=== PATIENT | female | born 1955 | race Caucasian/White ===

== ENCOUNTER 2017-06-26 15:46 | Inpatient (IN) | payer MEDICARE, BC ==
[~2017-06-26] VITALS: Ht 170.2 cm; Wt 80.9 kg
--- NOTE | ~2017-06-26 | HEMODYNAMI ---
PATIENT:ANTHONY LUTZ MEDICAL RECORD: [id number] : 55 LOCATION:[facility] D.2105 [facility]# [id number] ADMISSION DATE: 06/26/17 Generatedon:07/08/201714:49 Patient name: ANTHONY LUTZ Patient #: [id number] SSN: [id number] : 1955 Date of study: 07/08/2017 Page: Of Hemodynamic Procedure Report Patient Data Patient Demographics Procedure consent was obtained First Name: ANTHONY Gender: Female Last Name: NELDA : 1955 [facility] Initial: LUANN Age: 62 year(s) Patient #: [id number] Race: SSN: [id number] Additional ID: [id number] Contact details [address]: [address] [place] [address] State: [place] City: [place] Zip code: [address] Past Medical History Allergies Allergen Reaction Date Comments Reported Other allergy 07/08/2017 Simvastatins Admission Admission Data Admission Date: 06/26/2017 Admission Time: 16:28 Room #: D.2105 Lab Results Lab Result Date: 07/08/2017 Lab Result Time: 0:00 Biochemistry Name Units Result Min Max BUN mg/dl 22 --(----)-* 7 18 Creatinine mg/dl 1.7 --(----)-* 0.6 1.3 CBC Name Units Result Min Max Hemoglobin g/dl 11.4 *-(----)-- 13.5 17.5 Procedure Procedure Types Cath Procedure Diagnostic Procedure [facility] w/Coronaries Sedation Charges Moderate Sedation up to 30 minutes PCI Procedure Coronary Stent Coronary Stent Initial Procedure Description Procedure Date Procedure Date: 07/08/2017 Procedure Start Time: 13:52 Procedure End Time: 14:31 Procedure Staff Name Function Juventino Chamberlain MD Performing Physician Yomaira Tamayo RT Monitor Rochelle Cruz RT Scrub Yamileth Harvey RN Nurse Procedure Data Cath Procedure Fluoroscopy Diagnostic fluoroscopy Total fluoroscopy Time: 7.9 time: 7.9 min min Diagnostic fluoroscopy Total fluoroscopy dose: dose: 2067 mGy 2067 mGy Contrast Material Contrast Material Type Amount (ml) Isovue 300 112 Entry Location Entry Primary Successful Side Size Upsize Upsize Entry Closure [place] ccessful Closure Location (Fr) 1 (Fr) 2 (Fr) Remarks Device Remarks Radial Right 6 Fr Mechanical artery Short Compression Estimated blood loss: 10 ml Diagnostic catheters Device Type Used For End Catheter Placement DIAGNOSTIC Williams 110cm 5 Procedure Fr catheter ([id number]) DIAGNOSTIC JL 3.5 5Fr Procedure catheter ([id number]) Procedure Complications No complications Procedure Medications Medication Administration Route Dosage Oxygen NC 2 l/min Lidocaine 2% added to field 20 Heparin Flush Bag added to field 2 bags (1000units/500ml NS) 0.9% NaCl I.V. 100 ml/hr Versed I.V. 1 mg Fentanyl I.V. 50 mcg Versed I.V. 1 mg Fentanyl I.V. 50 mcg Radial Cocktail added to field 1 syringe (Verapomil 2mg/Nitro 400mcg/Heparin 1500units) Heparin Bolus I.V. 5000 units Integrilin (Bolus I.V. 11.3 ml 2mg/ml) Epinephrine I.V. 0.5 mg Dobutamine I.V. drip 5 mcg/kg/min (500mg/250ml D5W) Plavix P.O. 600 mg Hemodynamics Rest HGB: 11.4 (g/dl) Heart Rate: 88 (bpm) Pressure Samples Time Site Value (mmHg) Purpose Heart Use Rate(bpm) 14:01 LV 79/25,20 Snapshot 89 14:01 LV 81/25,20 Snapshot 129 14:01 AO (67) Pullback 45 Gradients Valve Time Site Site Mean SEP/DFP Peak To Heart Use 1 2 (mmHg) (sec/min) Peak Rate (mmHg) (bpm) Aortic 14:01 LV AO 17 11 45 (67) Calculations Valve P-P Mean Valve Index Valve Source Name Gradient Area Flow (cm2) Aortic 17 17 Snapshots Pre Cath Intra NCS Post Cath Vital Signs Time Heart Resp SPO2 etCO2 NIBP (mmHg) Rhythm Pain Sedation Rate (ipm) (%) (mmHg) Status Level (bpm) 13:39:42 88 23 99 47.9 139/93(133) NSR 0 (11) 10(A) , No pain 13:44:27 88 30 98 44.9 158/75(128) NSR 0 (11) 10(A) , No pain 13:55:20 91 19 94 9.7 117/76(89) NSR 0 (11) 10(A) , No pain 13:59:42 89 21 93 22.4 111/67(81) NSR 0 (11) 10(A) , No pain 14:04:11 89 15 93 18.7 105/60(82) NSR 0 (11) 10(A) , No pain 14:09:55 90 16 92 24.7 107/74(92) NSR 0 (11) 10(A) , No pain 14:14:27 91 18 93 11.2 118/72(91) NSR 0 (11) 10(A) , No pain 14:19:16 90 13 93 36.7 124/63(77) NSR 0 (11) 10(A) , No pain 14:23:42 89 15 93 24.7 92/77(88) NSR 0 (11) 10(A) , No pain 14:30:28 98 18 94 21.7 113/70(82) NSR 0 (11) 10(A) , No pain 14:38:03 98 16 94 26.2 Time NSR 0 (11) 10(A) Exceeded , No pain 14:41:48 98 14 93 30.7 103/72(84) NSR 0 (11) 10(A) , No pain Medications Time Medication Route Dose Verified Delivered Reason N otes Effectiveness by by 13:37:40 Oxygen NC 2 l/min Juventino Carson used for St Jah Harvey RN procedure 13:37:49 Lidocaine 2% added 20ml vial Juventino Jauregui for local to [facility] anesthetic field MD WALTON 13:37:56 Heparin Flush added 2 bags Juventino Jauregui used for Bag to [facility] procedure (1000units/500ml field MD WALTON NS) 13:38:04 0.9% NaCl I.V. 100 ml/hr Juventino Carson Per physician St Jah Harvey RN, MD 13:51:21 Versed I.V. 1 mg Juventino Carson for sedation St Jah Harvey RN, MD 13:51:27 Fentanyl I.V. 50 mcg Juventino Carson for sedation St Jah Harvey RN, MD 13:57:50 Versed I.V. 1 mg Juventino Carson for sedation St Jah Harvey RN, MD 13:57:59 Fentanyl I.V. 50 mcg Juventino Carson for sedation St Jah Harvey RN, MD 13:58:12 Radial Cocktail added 1 syringe Juventino sheets (Verapomil to St Jah Huerta John vasodilation 2mg/Nitro field MD WALTON 400mcg/Heparin 1500units) 14:11:00 Heparin Bolus I.V. 5000 units Juventino sheets v erified St Jah Harvey RN anticoagulation with dr MD russell 14:14:03 Integrilin I.V. 11.3 ml Juventino sheets (Bolus 2mg/ml) St Jah Harvey RN antiplatelet therapy 14:24:35 Epinephrine I.V. 0.5 mg Juventino Carson Per physician St Jah Harvey RN, MD 14:30:44 Dobutamine I.V. 5 Juventino Carson Per physician (500mg/250ml drip mcg/kg/min St Jah Harvey RN D5W) 14:49:07 Plavix P.O. 600 mg Juventino Carson for [facility] Jah Harvey RN antiplatelet therapy Procedure Log Time Note 12:45:51 Informed consent obtained and on chart 12:47:57 Rochelle Cruz RT(R) sent for patient. Start room use. 12:47:58 Time tracking: Regular hours (M-F 7:00 - 5:00) 12:48:03 Plan of Care:Hemodynamics will remain stable., Cardiac rhythm will remain stable., Comfort level will be maintained., Respiratory function will remain adequate., Patient/ family verbilizes understanding of procedure., Procedure tolerated without complication., Recovers from procedure without complications.. 12:55:59 Diagnostic Cath Status : Elective 12:57:40 Lab Result : Hemoglobin 11.4 g/dl 12:57:40 Lab Result : Creatinine 1.7 mg/dl 12:57:40 Lab Result : BUN 22 mg/dl 13:37:40 Oxygen 2 l/min NC was administered by Yamileth Harvey RN; used for procedure; 13:37:49 Lidocaine 2% 20ml vial added to field was administered by Juventino Chamberlain MD; for local anesthetic; 13:37:56 Heparin Flush Bag (1000units/500ml NS) 2 bags added to field was administered by Juventino Chamberlain MD; used for procedure; 13:38:04 0.9% NaCl 100 ml/hr I.V. was administered by Yamileth Harvey RN; Per physician; 13:38:11 Vital chart was started 13:38:29 Patient received from Med II to CCL 2 Alert and oriented. Tansferred to table in Supine position. 13:38:31 Warm blankets applied, and jeff hugger turned on for patient comfort. 13:38:31 Correct patient and procedure confirmed by team. 13:38:33 ECG and BP/O2 sat monitors applied to patient. 13:38:34 Baseline sample Acquired. 13:38:42 Rhythm: sinus rhythm 13:38:44 Full Disclosure recording started 13:38:57 H&P Date Dictated: 07/07/2017 Within 30 days and on chart.. 13:38:59 Pre-procedure instructions explained to patient. 13:39:02 Family in waiting room. 13:39:52 Patient allergic to Other allergySimvastatins 13:39:56 Is the patient allergic to Iodine/contrast media? No. 13:39:58 Was the patient premedicated? Yes 13:39:59 Is patient on blood thinner?No 13:40:00 Patient diabetic? Yes. 13:40:01 If diabetic: On Metformin? Yes 13:40:04 If on Metformin: Last Dose? 07/07/2017 13:40:09 Previous problem with sedation/anesthesia? No ? 13:40:12 Snore? Yes 13:40:14 Sleep apnea? Yes 13:40:21 Patient pain scale 0/10 ?. 13:40:31 IV patent on arrival in right forearm with 0.9% NaCl at KVO. 13:40:39 Lab results completed and on chart. 13:40:50 Right Radial & Right Groin area was prepped with chlora-prep and draped in sterile fashion 13:40:51 Alarms reviewed by R. N. 13:40:52 Sharps counted by scrub and verified by R.N. 13:40:53 Physician paged 13:48:59 Physician arrived 13:49:00 --------ALL STOP TIME OUT------ 13:49:00 Final Timeout: patient, procedure, and site verified with staff and physician. All members of the team are in agreement. 13:49:03 Right Radial & Right Groin site verified by team. 13:49:08 Physical assessment completed. ASA score P 2 - A patient with mild systemic disease as per Juventino Chamberlain MD. 13:49:12 Sedation plan: IV Moderate Sedation Medication:Versed, Fentanyl 13:51:21 Versed 1 mg I.V. was administered by Yamileth Harvey RN; for sedation; 13:51:27 Fentanyl 50 mcg I.V. was administered by Yamileth Harvey RN; for sedation; 13:52:45 Use device set Femoral Dx 13:52:48 Procedure started. 13:52:53 Local anesthetic to right radial artery with Lidocaine 2% by Juventino Chamberlain MD.INITIAL ACCESS ONLY 13:53:05 ACIST Syringe (96188) opened to sterile field. 13:53:06 Bag Decanter (2002S) opened to sterile field. 13:53:08 Medline Cath Pack ([id number]) opened to sterile field. 13:53:08 DIAGNOSTIC WIRE .035 260cm J wire (503196) opened to sterile field. 13:53:10 ACIST Hand Control (87168) opened to sterile field. 13:53:11 ACIST Manifold (78471) opened to sterile field. 13:53:12 Tegaderm 4 x 4 (1626W) opened to sterile field. 13:55:05 A 6 Fr Short sheath was inserted into the Right Radial artery 13:55:08 SHEATH 6Fr Prelude Radial ([id number]) opened to sterile field. 13:57:50 Versed 1 mg I.V. was administered by Yamileth Harvey RN; for sedation; 13:57:59 Fentanyl 50 mcg I.V. was administered by Yamileth Harvey RN; for sedation; 13:58:12 Radial Cocktail (Verapomil 2mg/Nitro 400mcg/Heparin 1500units) 1 syringe added to field was administered by Juventino Chamberlain MD; for vasodilation; 14:00:14 A DIAGNOSTIC Williams 110cm 5 Fr catheter ([id number]) was advanced over the wire and used for Procedure. 14:00:19 LV gram done using KUMAR 14:01:36 EF : 25 % 14:02:11 RCA angiography performed. 14:03:47 Catheter removed. 14:04:48 A DIAGNOSTIC JL 3.5 5Fr catheter ([id number]) was advanced over the wire and used for Procedure. 14:06:36 Catheter removed. 14:06:48 GUIDE 5FR EBU 3.5 catheter ([id number]) opened to sterile field. 14:06:53 LCA angiography performed. 14:10:14 WHISPER 300cm guide wire ([id number]) opened to sterile field. 14:10:15 INFLATOR Merit BasixCompak (BB1484) opened to sterile field. 14:10:38 Catheter removed. 14:10:42 Proceeding to intervention. 14:11:00 Heparin Bolus 5000 units I.V. was administered by Yamileth Harvey RN; for anticoagulation; verified with dr russell 14:11:39 6 Fr EBU 3.5 guide catheter was inserted over the wire 14:11:44 whisper wire advanced. 14:12:25 Wire removed. 14:12:36 COUGAR 300cm guide wire ([id number]) opened to sterile field. 14:14:00 cougar wire advanced. 14:14:03 Integrilin (Bolus 2mg/ml) 11.3 ml I.V. was administered by Yamileth Harvey RN; for antiplatelet therapy; 14:14:04 Wire advanced across lesion. 14:16:59 Place stent Inflation Number: 1 A IDRIS OTW 3.0 x 18 stent ([id number]) was prepped and advanced across the Mid LAD. The stent was deployed at 14 SELENE for 0:24 (min:sec). 14:17:29 Stent catheter was removed intact over wire. 14:20:29 Place stent Inflation Number: 1 A IDRIS OTW 3.0 x 15 stent ([id number]) was prepped and advanced across the Prox LAD. The stent was deployed at 14 SELENE for 0:16 (min:sec). 14:22:46 Stent catheter was removed intact over wire. 14:24:27 Wire removed. 14:24:28 Guide catheter removed. 14:24:35 Epinephrine 0.5 mg I.V. was administered by Yamileth Harvey RN; Per physician; 14:25:02 Sheath removed intact; hemostasis achieved with Mechanical Compression to the Right Radial artery. 14:25:04 Procedure ended.(Physican Out) 14:27:45 Fluoroscopy time 07.90 minutes. 14::51 Fluoroscopy dose: 7 mGy 14:27:51 Flurop Dose total: 2066 14:27:54 Contrast amount:Isovue 300 112ml. 14:27:56 Sharps counted by scrub and verified by R.N. 14:27:59 TR band inflated with 10cc of air. 14:28:58 TR BAND Standard ([id number]) opened to sterile field. 14:29:03 Insertion/operative site no bleeding no hematoma. 14:29:06 Post Procedure Pulses reassessed and unchanged 14:29:23 Post-procedure physical assessment completed. ASA score P 3 - A patient with severe systemic disease as per Yomaira Tamayo RT(R). 14:30:05 Estimated blood loss: 10 ml 14:30:06 Post procedure instruction explained to patient.Patient verbalizes understanding. 14:30:40 Procedure type changed to Cath procedure, Diagnostic procedure, LHC, LHC w/Coronaries, Sedation Charges, Moderate Sedation up to 30 minutes, PCI procedure, Coronary Stent, Coronary Stent Initial 14:30:43 Procedure and supply charges have been captured, reviewed, submitted and are correct. 14:30:44 Dobutamine (500mg/250ml D5W) 5 mcg/kg/min I.V. drip was administered by Yamileth Harvey RN; Per physician; 14:31:11 Procedure Complication : No complications 14:31:14 Vital chart was stopped 14:31:15 See physician's report for complete and final results. 14:31:24 Report given to [facility]. 14:31:31 Patient transfered to [facility] with Bed. 14:31:34 Procedure ended. 14:31:34 Full Disclosure recording stopped 14:31:37 End room use (Document Last) 14:31:47 ACC-PCI Only Patient was given prescriptions, or instructed by Yamileth Harvey RN to start/continue the following medications upon discharge: Plavix 14:49:07 Plavix 600 mg P.O. was administered by Yamileth Harvey RN; for antiplatelet therapy; Intervention Summary Intervention Notes Time ActionType Lesion and Equipment Action# Pressure Duration Attributes Used 14:16:59 Place stent Mid LAD IDRIS OTW 3.0 1 14 00:24 x 18 stent ([id number]) 14:20:29 Place stent Prox LAD IDRIS OTW 3.0 1 14 00:16 x 15 stent ([id number]) Device Usage Item Name Manufacture Quantity Catalog Number Hospital Part Current Minimal Lot# / Charge Number Stock Stock Serial# Code ACIST Syringe Acist 1 23897 161052 732173 [id number] 20 (32542) [employer] Inc Bag Decanter Microtek 1 290812 77734 018429 5 () Medical Inc. Medline Cath Cardinal 1 [id number] 790046 14544 472467 5 Pack Health ([id number]) DIAGNOSTIC WIRE St Juan F 1 079052 966831 560701 088712 30 .035 260cm J wire (472349) ACIST Hand Acist 1 78977 544262 520492 077209 5 Control (37236) Medical Systems Inc ACIST Manifold Acist 1 35645 986443 661110 185492 5 (76097) Medical Systems Inc Tegaderm 4 x 4 3M 1 1626W 549962 695109 886747 5 (1626W) SHEATH 6Fr Merit 1 [id number] 704310 928268 913547 5 Prelude Radial Medical ([id number]) DIAGNOSTIC Terumo 1 405013 573833 972477 173300 5 Williams 110cm 5 Fr catheter (042326) DIAGNOSTIC JL Cardinal 1 [id number] 154825 296001 024729 5 3.5 5Fr Health catheter (906769N) GUIDE 5FR EBU Medtronic 1 [id number] 029234 026526 597989 1 3.5 catheter ([id number]) WHISPER 300cm Carolina 1 [id number] 602185 323123 036617 5 guide wire Vascular ([id number]) INFLATOR Merit Merit 1 [id number] 608761 273341 118668 15 BasixCommtk Medical (HK3767) COUGAR 300cm Carolina 1 [id number] 521635 545479 055036 1 guide wire Vascular ([id number]) IDRIS OTW 3.0 x Medtronic 1 [id number] 937287 4123001 560841 5 [id number] 18 stent ([id number]) IDRIS OTW 3.0 x Medtronic 1 [id number] 829261 752347 287627 5 [id number] 15 stent ([id number]) TR BAND Terumo 1 [id number] 366518 127117 435011 40 Standard ([id number]) Signature Audit [place] Stage Time Signature Unsigned Intra-Procedure 07/08/2017 Yomaira Tamayo 2:49:51 PM RT(R) Signatures Monitor : Yomaira Tamayo Signature : RT Date : Time : [address] [address]
--- NOTE | ~2017-06-26 | OP ---
PATIENT NAME: ANTHONY LUTZ MEDICAL RECORD: [id number] :55 LOCATION:D.M2 D.2105 ADMISSION DATE:06/26/17 SURGEON: MAKAYLA HINDS MD DATE OF OPERATION: 07/01/2017 PREOPERATIVE DIAGNOSES: 1. End-stage renal disease without access for hemodialysis. 2. Respiratory insufficiency. POSTOPERATIVE DIAGNOSES: 1. End-stage renal disease without access for hemodialysis. 2. Respiratory insufficiency. PROCEDURES: 1. Placement of right 19-cm HemoSplit catheter under fluoroscopic guidance (tunneled cuffed dual-lumen hemodialysis catheter). 2. Immediate surgeon interpretation of the fluoroscopic images. SURGEON: Makayla Hinds MD MONITOR TECH: None. BLOOD LOSS: 5 cc. ANESTHESIA: Local with IV sedation. COMPLICATIONS: None. The risks, possible complication, alternatives to procedure were explained to the patient and her family. They elected to proceed. The discussion specifically included, but was not limited to, bleeding requiring an emergency reoperation, infection, great vessel injury, and pneumothorax. The patient is quite ill. This procedure had to be performed under local with sedation as the patient is at a very high risk for ventilatory failure requiring prolonged mechanical ventilation if she requires endotracheal intubation. OPERATIVE COURSE: The patient was conveyed to the operating room urgently on 07/01/2017. IV sedation was induced by the anesthesia staff. The right neck and right chest were sterilely prepped and draped. A local anesthetic was used to infiltrate the skin and subcutaneous tissues of the right superior and infraclavicular chest as well as the right neck. Under ultrasonographic guidance, I percutaneously accessed the right internal jugular vein in an antegrade fashion. A guidewire passed easily. A small skin maribel was accomplished. A vessel dilator was used to dilate the subcutaneous tract. This was visualized under fluoroscopy. No radiologist was present for this procedure. Fluoroscopic images were obtained and are kept in the PACS system. The surgeon interpretation of the radiographic images is dictated within the body of this operative note. I then tunneled a 19-cm HemoSplit catheter from an incision in the right infraclavicular chest to the neck incision. I then advanced a dilator sheath over the wire. The dilator and wire were removed. Through the sheath, the tips of the HemoSplit catheter were advanced. The peel-away sheath was then peeled away. I then tugged on the HemoSplit catheter seating the cuff in the OPERATIVE REPORT [id number] ANTHONY LUTZ subcutaneous tissues. Under fluoroscopy, the longest tip of the HemoSplit catheter appeared to be either in the right innominate vein or in the superior vena cava. Another image was obtained over the right lung apex. There was no evidence of pneumothorax. No evidence of kinking or twisting of the HemoSplit catheter. The neck incision was closed with a horizontal mattress 3-0 Vicryl. The flange of the HemoSplit catheter was sutured down lung scan with 2-0 nylons. Both lumens flushed easily and aspirated dark, nonpulsatile blood. I then flushed both lumens of the HemoSplit catheter with the appropriate amount of concentrated heparin. Sterile dressings were applied. TRANSINT:[id number] Voice Confirmation ID: [id number] DOCUMENT ID: [id number] MAKAYLA HINDS MD at 1507 CC: ARLENE BRADEN MD [id number] DICTATION DATE: 07/02/17 1039 RADIAL DRILL OPERATOR FOR PLASTIC: 07/02/17 1347 ADM IN [facility] [address] [place] [address]
--- NOTE | ~2017-06-26 | EC ---
PATIENT:ANTHONY LUTZ DATE OF SERVICE: 06/26/17 SEX: F MEDICAL RECORD: [id number] DATE OF : 55 LOCATION:D.M2 D.210 AGE OF PATIENT: 62 ADMISSION DATE: 06/26/17 REFERRING PHYSICIAN: INTERPRETING PHYSICIAN: SANG JIMENEZ MD ECHOCARDIOGRAM REPORT ECHO CHARGES 4 ECHO COMPLETE Date: 06/27 CLINICAL DIAGNOSIS: SOB/CHEST PAIN ECHOCARDIOGRAPHIC MEASUREMENTS (adult normal given) AC root (d.<3.7cm) 2.7 cm LV Septum d (<1.2 cm> 1.2 cm Valve Excursion 1.6 cm LV Septum (systole) 1.6 cm Left Atria (s.<4.0cm> 4.1 cm LVPW d(<1.2cm) 1.5 cm RV (d.<2.3cm) 4.1 cm LVPW (sytole) 1.9 cm LV diastole(<5.6CM) 5.6 cm MV E-F(>70mm/sec) cm LV systole 3.5 cm LVOT Diameter 1.7 cm MV exc.(>10mm) cm Est.ejection fraction (50-75%) % DOPPLER: LVIT cm/sec A 54.0 cm/sec E 82.0 cm/sec LA cm/sec RVSP 37 mmHg LVOT 113 cm/sec AOP1/2T m/s Asc. Ao 148 cm/sec RVOT 92 cm/sec RA cm/sec PA 153 cm/sec AV Gradient Peak 8.79 mmHg AV Mean 4.91 mmHg AV Area 1.6 cm MV Gradient Peak 6.36 mmHg MV Mean 2.60 mmHg MV Area cm COMMENTS: Tobacco Stemmer: Lori LANDERS Field Sales Trainer: 1 Dr. Jimenez TAPE# PACS Pericardial Effusion N DATE OF SERVICE: 06/27/2017 ECHOCARDIOGRAM FINDINGS: 1. Left ventricular chamber size is within normal limits. Left ventricular systolic function is normal. Overall ejection fraction estimated at 55%. 2. Left atrium is enlarged at 4.1 cm. Right atrium and right ventricular chamber sizes are as well mildly dilated. 3. Valvular structures have normal structure and motion. ECHOCARDIOGRAM REPORT [id number] ANTHONY LUTZ 4. Doppler interrogation reveals mild mitral regurgitation, mild tricuspid regurgitation, no other valvular insufficiency or stenosis and pulmonary systolic pressure is estimated 37 mmHg. 5. No evidence of pericardial effusion or left ventricular thrombus. TRANSINT:[id number] Voice Confirmation ID: [id number] DOCUMENT ID: [id number] SANG JIMENEZ MD at 1848 CC: [id number] DICTATION DATE: 06/27/17 1305 TEACHER'S AIDE: 06/27/17 1650 ADM IN [facility] [address] [place] [id number]
--- NOTE | ~2017-06-26 | OP ---
PATIENT NAME: ANTHONY LUTZ MEDICAL RECORD: [id number] :55 LOCATION:D.M2 D.2105 ADMISSION DATE:06/26/17 SURGEON: LYNSEY DACOSTA MD DATE OF OPERATION: 07/08/2017 PROCEDURE: Left heart catheterization, selective coronary angiography, right radial approach. CATHETERS: Radial sheath, Hoffman catheter. The procedure was well tolerated and the patient was returned to the rodriguez, sheath removed. TR band was placed. FINDINGS: Left ventriculography in 30-degree KUMAR shows global LV hypokinesis, reduced EF, estimated EF 20% to 25%. CORONARY ANATOMY: LEFT MAIN: Left main free of disease. LAD: LAD has 2 diffuse sequential stenosis of 90% consistent with diabetic disease. CIRCUMFLEX: Small circumflex totally occluded, fills via left to left collaterals. RIGHT CORONARY ARTERY: Dominant artery, totally occluded, fills again via left to right collaterals. IMPRESSION: Only functioning vessel at this point is the LAD. PLAN: Intervention momentarily. DESCRIPTION OF PROCEDURE: Using indwelling sheath, an EBU 3.5 guiding catheter provided good guide catheter support followed by a 300 cm wire was placed across both lesions to the LAD down this portion of vessel. Distal stenosis of 90% was addressed with a 3.0 x 18 mm Omsan drug-eluting stent, more proximally 3.0 x 15 mm Provo drug-eluting stent was placed both up to 14 atmospheres for 45 seconds. Final angiography shows excellent resolution to 90% stenosis, no significant residual. BRANDEN flow was 2 throughout the procedure. Given decreased pump function, the patient was placed on Dobutrex for inotropic support for the short term. MOVED TO CORRECT ACCT#, ROSE 07/18/17 TRANSINT:[id number] Voice Confirmation ID: [id number] DOCUMENT ID: [id number] LYNSEY DACOSTA MD at 0826 CC: [id number] DICTATION DATE: 07/08/17 1433 POST TENSIONING IRONWORKER HELPER: 07/08/17 1538 DIS IN 07/10/17 [facility] [address] [place] [address]
[2017-06-26] MEDS ORDERED: HYDROCODONE-APA1 TAB PO (16:31)
[2017-06-26] MEDS ORDERED: ALDACTONE50 MG PO (16:33)
[2017-06-26] MEDS ORDERED: NEURONTIN 300300 MG PO (16:33)
[2017-06-26] MEDS ORDERED: MOBIC7.5 MG PO (16:34)
[2017-06-26] MEDS ORDERED: LISINOPRIL10 MG PO (16:34)
[2017-06-26] MEDS ORDERED: REMERON15 MG PO (16:35)
[2017-06-26] MEDS ORDERED: GLUCOPHAGE500 MG PO (16:36)
[2017-06-26] MEDS ORDERED: FUROSEMIDE20 MG PO (16:36)
[2017-06-26] MEDS ORDERED: LIPITOR20 MG PO (16:37)
[2017-06-26] MEDS ORDERED: REQUIP0.5 MG PO (16:38)
[2017-06-26] MEDS ORDERED: HUMALOG 30100 UNITS/ SC (16:55)
[2017-06-26] MEDS ORDERED: LEVEMIR100 U/M1 SC (16:56)
[2017-06-26 18:42] LABS: HEMATOCRIT 43.5 % (36.0-48.0); HEMOGLOBIN 13.3 g/dL (12-16); MCHC 30.6 g/dL (31.0-37.0); MCV 94.8 fL (80.0-100.0); PLATELET COUNT 251 10x3/uL (130-400); RBC 4.59 10x6/uL (4.00-5.40); RDW 15.3 % (11.5-14.5)
[2017-06-26 19:23] VITALS: BP 119/61; BMI 54.6
[2017-06-26 19:24] LABS: ALBUMIN 3.7 g/dL (3.4-5.0); ANION GAP 15.1 mmol/L (8-16); BILIRUBIN - TOTAL 0.3 mg/dL (0.2-1.3); CALCIUM 9.6 mg/dL (8.5-10.1); CARBON DIOXIDE 24.3 mmol/L (21.0-32.0); CREATININE - SERUM 2.8 mg/dL (0.6-1.3); PROTEIN - SERUM 7.9 g/dL (6.4-8.2)
[2017-06-26 19:27] LABS: EOSINOPHILS 21 % (0-7); LYMPHOCYTES 16 % (15-50); MONOCYTES 4 % (2-11); NEUTROPHILS 59 % (40-80); PLATELET ESTIMATE NORMAL
[2017-06-26 19:30] LABS: POIKILOCYTOSIS OCC; SCHISTOCYTES OCC
[2017-06-26 19:33] LABS: POTASSIUM - SERUM 6.4 mmol/L (3.5-5.1)
[2017-06-26 21:23] VITALS: BP 115/46
[2017-06-27 01:38] VITALS: BP 151/55
[2017-06-27 04:53] VITALS: BP 102/48
[2017-06-27 08:05] LABS: BASOPHILS 0.6 % (0-2); HEMATOCRIT 39.9 % (36.0-48.0); HEMOGLOBIN 11.8 g/dL (12-16); IMMATURE GRANULOCYTES 0.2 % (0-5); LYMPHOCYTES 10.9 % (15-50); MCH 28.4 pg (26.0-34.0); MCHC 29.6 g/dL (31.0-37.0); MCV 96.1 fL (80.0-100.0); MEAN PLATELET VOLUME 10.9 fL (7.4-10.4); MONOCYTES 8.1 % (2-11); NEUTROPHILS 63.2 % (40-80); PLATELET COUNT 264 10x3/uL (130-400); RBC 4.15 10x6/uL (4.00-5.40); RDW 15.3 % (11.5-14.5); WBC 10.9 10x3/uL (4.8-10.8)
[2017-06-27 08:24] LABS: ANION GAP 13.4 mmol/L (8-16); CALCIUM 9.1 mg/dL (8.5-10.1); CARBON DIOXIDE 25.7 mmol/L (21.0-32.0); CREATININE - SERUM 2.8 mg/dL (0.6-1.3); POTASSIUM - SERUM 6.1 mmol/L (3.5-5.1)
[2017-06-27 09:09] VITALS: BP 120/69
[2017-06-27 10:34] VITALS: BMI 53.7
[2017-06-27 11:53] VITALS: BP 132/78
[2017-06-27 13:37] VITALS: Ht 170.2 cm; Wt 80.9 kg
[2017-06-27 15:07] LABS: APPEARANCE CLEAR (CLEAR); BILIRUBIN NEGATIVE (NEGATIVE); COLOR YELLOW (YELLOW); GLUCOSE NEGATIVE (NEGATIVE); KETONE NEGATIVE (NEGATIVE); NITRITE NEGATIVE (NEGATIVE); PROTEIN TRACE mg/dL (NEGATIVE); SPECIFIC GRAVITY 1.025 (1.005-1.020); UROBILINOGEN NORMAL (NORMAL)
[2017-06-27 16:50] VITALS: BP 114/66
[2017-06-27 22:57] VITALS: BP 118/73
[2017-06-28 02:57] VITALS: BP 100/57
[2017-06-28 05:51] LABS: CHOL - HDL RATIO 3.6 ratio (2.3-4.1); LDL-HDL RATIO 1.9 ratio (1.5-3.5)
[2017-06-28 05:58] VITALS: BP 158/80
[2017-06-28 07:56] LABS: ANION GAP 16.2 mmol/L (8-16); CALCIUM 8.9 mg/dL (8.5-10.1); CARBON DIOXIDE 22.1 mmol/L (21.0-32.0); CREATININE - SERUM 2.8 mg/dL (0.6-1.3); POTASSIUM - SERUM 5.3 mmol/L (3.5-5.1)
[2017-06-28 08:20] LABS: BASOPHILS 0.4 % (0-2); EOSINOPHILS 11.8 % (0-7); HEMATOCRIT 34.3 % (36.0-48.0); HEMOGLOBIN 10.3 g/dL (12-16); IMMATURE GRANULOCYTES 0.2 % (0-5); LYMPHOCYTES 11.5 % (15-50); MCH 28.4 pg (26.0-34.0); MCV 94.5 fL (80.0-100.0); MEAN PLATELET VOLUME 10.8 fL (7.4-10.4); MONOCYTES 10.8 % (2-11); NEUTROPHILS 65.3 % (40-80); PLATELET COUNT 237 10x3/uL (130-400); RBC 3.63 10x6/uL (4.00-5.40); RDW 15.2 % (11.5-14.5); WBC 9.7 10x3/uL (4.8-10.8)
[2017-06-28 08:33] VITALS: BP 104/56
[2017-06-28 11:58] VITALS: BP 96/54
[2017-06-28 16:44] VITALS: BP 144/94
[2017-06-28 21:57] VITALS: BP 108/72
[2017-06-29 01:43] VITALS: BP 103/33
[2017-06-29 05:25] LABS: BASOPHILS 0.4 % (0-2); EOSINOPHILS 11.5 % (0-7); HEMATOCRIT 35.2 % (36.0-48.0); HEMOGLOBIN 10.3 g/dL (12-16); IMMATURE GRANULOCYTES 0.3 % (0-5); LYMPHOCYTES 10.3 % (15-50); MCH 28.1 pg (26.0-34.0); MCHC 29.3 g/dL (31.0-37.0); MCV 96.2 fL (80.0-100.0); MEAN PLATELET VOLUME 10.7 fL (7.4-10.4); MONOCYTES 7.8 % (2-11); NEUTROPHILS 69.7 % (40-80); PLATELET COUNT 249 10x3/uL (130-400); RBC 3.66 10x6/uL (4.00-5.40); RDW 15.5 % (11.5-14.5); WBC 11.3 10x3/uL (4.8-10.8)
[2017-06-29 05:35] LABS: ANION GAP 16.4 mmol/L (8-16); CALCIUM 8.9 mg/dL (8.5-10.1); CARBON DIOXIDE 22.3 mmol/L (21.0-32.0); POTASSIUM - SERUM 5.7 mmol/L (3.5-5.1)
[2017-06-29 05:39] LABS: CREATININE - SERUM 3.8 mg/dL (0.6-1.3)
[2017-06-29 06:17] VITALS: BP 114/95
[2017-06-29 08:14] LABS: CREATININE - URINE 175.3 mg/dL (30-125); PROTEIN - URINE 48.5 mg/dL (0.0-11.9)
[2017-06-29 08:18] VITALS: BP 111/89
[2017-06-29 12:28] VITALS: BP 99/59
[2017-06-29 14:07] LABS: ERYTHROCYTE SEDIMENTATION RATE 14 mm/hr (0-30)
[2017-06-29 16:30] VITALS: BP 110/64
[2017-06-29 21:01] VITALS: BP 67/65
[2017-06-30 00:58] VITALS: BP 132/53
[2017-06-30 05:05] LABS: BASOPHILS 0.2 % (0-2); EOSINOPHILS 13.2 % (0-7); HEMATOCRIT 34.9 % (36.0-48.0); HEMOGLOBIN 10.5 g/dL (12-16); IMMATURE GRANULOCYTES 0.1 % (0-5); MCH 28.5 pg (26.0-34.0); MCHC 30.1 g/dL (31.0-37.0); MCV 94.6 fL (80.0-100.0); MEAN PLATELET VOLUME 10.6 fL (7.4-10.4); MONOCYTES 10.4 % (2-11); NEUTROPHILS 66.1 % (40-80); PLATELET COUNT 243 10x3/uL (130-400); RBC 3.69 10x6/uL (4.00-5.40); RDW 15.6 % (11.5-14.5); WBC 10.5 10x3/uL (4.8-10.8)
[2017-06-30 05:32] LABS: ANION GAP 15.8 mmol/L (8-16); CALCIUM 8.5 mg/dL (8.5-10.1); CARBON DIOXIDE 24.2 mmol/L (21.0-32.0)
[2017-06-30 05:35] LABS: CREATININE - SERUM 4.8 mg/dL (0.6-1.3)
[2017-06-30 06:33] VITALS: BP 141/84
[2017-06-30 09:13] VITALS: BP 96/701
[2017-06-30 12:46] VITALS: BP 82/53
[2017-06-30 16:23] LABS: CREATININE - URINE 199.6 mg/dL (30-125)
[2017-06-30 16:36] LABS: APPEARANCE HAZY (CLEAR); BACTERIA MODERATE /hpf (NONE SEEN); BILIRUBIN NEGATIVE (NEGATIVE); COLOR YELLOW (YELLOW); EPITHELIAL CELLS 0-5 /hpf (0-5); GLUCOSE 50 mg/dL (NEGATIVE); KETONE NEGATIVE (NEGATIVE); NITRITE NEGATIVE (NEGATIVE); PROTEIN 1+ mg/dL (NEGATIVE); RED CELLS - URINE 0-5 /hpf (0-5); UROBILINOGEN NORMAL (NORMAL); WHITE CELLS - URINE 0-5 /hpf (0-5)
[2017-06-30 16:37] LABS: AMORPHOUS SEDIMENT >1+ /lpf (NONE SEEN)
[2017-06-30 16:43] VITALS: BP 100/55
[2017-06-30 17:11] LABS: PRO/CRE RATIO URINE 3.3 mg/g; PROTEIN - URINE 665.4 mg/dL (0.0-11.9)
[2017-06-30 20:00] VITALS: BP 120/102
[2017-07-01] VITALS: BP 109/60
[2017-07-01 04:00] VITALS: BP 92/46
[2017-07-01 06:18] LABS: BASOPHILS 0.4 % (0-2); EOSINOPHILS 13.9 % (0-7); HEMATOCRIT 34.5 % (36.0-48.0); HEMOGLOBIN 10.3 g/dL (12-16); IMMATURE GRANULOCYTES 0.2 % (0-5); LYMPHOCYTES 10.1 % (15-50); MCH 28.1 pg (26.0-34.0); MCHC 29.9 g/dL (31.0-37.0); MCV 94.3 fL (80.0-100.0); MEAN PLATELET VOLUME 11.1 fL (7.4-10.4); MONOCYTES 8.9 % (2-11); NEUTROPHILS 66.5 % (40-80); PLATELET COUNT 235 10x3/uL (130-400); RBC 3.66 10x6/uL (4.00-5.40); RDW 15.4 % (11.5-14.5); WBC 11.2 10x3/uL (4.8-10.8)
[2017-07-01 06:37] LABS: ANION GAP 19.4 mmol/L (8-16); CARBON DIOXIDE 21.5 mmol/L (21.0-32.0); POTASSIUM - SERUM 5.9 mmol/L (3.5-5.1)
[2017-07-01 07:53] LABS: COMPLEMENT C4 25.4 mg/dL (17.4-52.2)
[2017-07-01 08:46] LABS: ERYTHROCYTE SEDIMENTATION RATE 20 mm/hr (0-30)
[2017-07-01 11:35] VITALS: BP 130/43
[2017-07-01 15:38] VITALS: BP 120/56
[2017-07-01 20:00] VITALS: BP 137/104
[2017-07-02 01:00] VITALS: BP 162/114
[2017-07-02 04:00] VITALS: BP 212/71
[2017-07-02 04:43] LABS: BASOPHILS 0.7 % (0-2); EOSINOPHILS 15.1 % (0-7); HEMATOCRIT 36.5 % (36.0-48.0); HEMOGLOBIN 11.2 g/dL (12-16); IMMATURE GRANULOCYTES 0.2 % (0-5); LYMPHOCYTES 8.7 % (15-50); MCH 28.1 pg (26.0-34.0); MCHC 30.7 g/dL (31.0-37.0); MCV 91.5 fL (80.0-100.0); MEAN PLATELET VOLUME 10.5 fL (7.4-10.4); MONOCYTES 8.5 % (2-11); NEUTROPHILS 66.8 % (40-80); PLATELET COUNT 187 10x3/uL (130-400); RBC 3.99 10x6/uL (4.00-5.40); RDW 15.1 % (11.5-14.5); WBC 10.9 10x3/uL (4.8-10.8)
[2017-07-02 04:53] LABS: ANION GAP 20.1 mmol/L (8-16); CALCIUM 9.1 mg/dL (8.5-10.1); CARBON DIOXIDE 22.1 mmol/L (21.0-32.0); CREATININE - SERUM 4.8 mg/dL (0.6-1.3); POTASSIUM - SERUM 5.2 mmol/L (3.5-5.1)
[2017-07-02 10:03] VITALS: BP 111/48
[2017-07-02 10:22] LABS: HEPATITIS C ANTIBODY <0.1 (0.0-0.9)
[2017-07-02 10:22] LABS: ANA REFLEX - ANTICHROMATIN ABS <0.2 AI (0.0-0.9); ANA REFLEX - CENTROMERE B ABS <0.2 AI (0.0-0.9); ANA REFLEX - DBL STRANDED DNA 1 IU/mL (0-9); ANA REFLEX - DIRECT Positive (Negative); ANA REFLEX - JO-1 AB <0.2 AI (0.0-0.9); ANA REFLEX - RNP ANTIBODIES 1.4 AI (0.0-0.9); ANA REFLEX - SCL-70 <0.2 AI (0.0-0.9); ANA REFLEX - SJOGRENS AB SSA <0.2 AI (0.0-0.9); ANA REFLEX - SJOGRENS AB SSB <0.2 AI (0.0-0.9); ANA REFLEX - SMITH AB <0.2 AI (0.0-0.9)
[2017-07-02 12:04] VITALS: BP 138/81
[2017-07-02 20:41] VITALS: BP 151/72
[2017-07-03 04:00] VITALS: BP 176/87
[2017-07-03 05:05] LABS: BASOPHILS 0.3 % (0-2); EOSINOPHILS 15.5 % (0-7); HEMATOCRIT 36.5 % (36.0-48.0); HEMOGLOBIN 11.8 g/dL (12-16); IMMATURE GRANULOCYTES 0.3 % (0-5); LYMPHOCYTES 10.9 % (15-50); MCH 28.8 pg (26.0-34.0); MCHC 32.3 g/dL (31.0-37.0); MEAN PLATELET VOLUME 11.1 fL (7.4-10.4); MONOCYTES 7.8 % (2-11); NEUTROPHILS 65.2 % (40-80); PLATELET COUNT 173 10x3/uL (130-400); RDW 14.7 % (11.5-14.5); WBC 11.5 10x3/uL (4.8-10.8)
[2017-07-03 05:12] LABS: CALCIUM 9.2 mg/dL (8.5-10.1); CARBON DIOXIDE 24.5 mmol/L (21.0-32.0); POTASSIUM - SERUM 4.5 mmol/L (3.5-5.1)
[2017-07-03 05:21] LABS: CREATININE - SERUM 3.5 mg/dL (0.6-1.3)
[2017-07-03 09:18] LABS: ANTI-GLOMERULAR BASMENT MEMBRN 4 units (0-20)
[2017-07-03 14:24] LABS: ANCA - ANTIMYELOPEROXIDASE <9.0 U/mL (0.0-9.0); ANCA - ANTIPROTEINASE 3 <3.5 U/mL (0.0-3.5); ANCA - ATYPICAL <1:20 titer (Neg:<1:20); ANCA - CYTOPLASMIC <1:20 titer (Neg:<1:20); ANCA - PERINUCLEAR <1:20 titer (Neg:<1:20)
[2017-07-03 16:39] VITALS: BP 192/82
[2017-07-03 21:48] VITALS: BP 169/53
[2017-07-04 01:00] VITALS: BP 128/66
[2017-07-04 04:00] VITALS: BP 136/67
[2017-07-04 05:30] LABS: BASOPHILS 0.3 % (0-2); EOSINOPHILS 18.5 % (0-7); HEMATOCRIT 36.2 % (36.0-48.0); HEMOGLOBIN 11.1 g/dL (12-16); IMMATURE GRANULOCYTES 0.2 % (0-5); LYMPHOCYTES 14.3 % (15-50); MCH 27.8 pg (26.0-34.0); MCHC 30.7 g/dL (31.0-37.0); MCV 90.5 fL (80.0-100.0); MEAN PLATELET VOLUME 10.9 fL (7.4-10.4); MONOCYTES 9.6 % (2-11); NEUTROPHILS 57.1 % (40-80); PLATELET COUNT 182 10x3/uL (130-400); RDW 14.6 % (11.5-14.5); WBC 12.3 10x3/uL (4.8-10.8)
[2017-07-04 05:52] LABS: ANION GAP 12.1 mmol/L (8-16); BILIRUBIN - TOTAL 0.45 mg/dL (0.2-1.3); CALCIUM 8.8 mg/dL (8.5-10.1); CARBON DIOXIDE 30.3 mmol/L (21.0-32.0); PROTEIN - SERUM 6.9 g/dL (6.4-8.2)
[2017-07-04 05:57] LABS: CREATININE - SERUM 2.3 mg/dL (0.6-1.3)
[2017-07-04 05:58] LABS: POTASSIUM - SERUM 3.4 mmol/L (3.5-5.1)
[2017-07-04 08:36] VITALS: BP 113/70
[2017-07-04 15:51] VITALS: BP 103/79
[2017-07-04 20:05] VITALS: BP 124/58
[2017-07-05 00:38] VITALS: BP 114/55
[2017-07-05 04:00] VITALS: BP 112/58
[2017-07-05 04:47] LABS: BASOPHILS 0.3 % (0-2); EOSINOPHILS 19.1 % (0-7); HEMATOCRIT 34.3 % (36.0-48.0); HEMOGLOBIN 10.4 g/dL (12-16); IMMATURE GRANULOCYTES 0.2 % (0-5); MCH 27.7 pg (26.0-34.0); MCHC 30.3 g/dL (31.0-37.0); MCV 91.5 fL (80.0-100.0); MEAN PLATELET VOLUME 11.2 fL (7.4-10.4); MONOCYTES 10.7 % (2-11); NEUTROPHILS 57.7 % (40-80); PLATELET COUNT 162 10x3/uL (130-400); RBC 3.75 10x6/uL (4.00-5.40); RDW 14.7 % (11.5-14.5); WBC 10.4 10x3/uL (4.8-10.8)
[2017-07-05 05:17] LABS: ALBUMIN 2.9 g/dL (3.4-5.0); ANION GAP 11.8 mmol/L (8-16); BILIRUBIN - TOTAL 0.51 mg/dL (0.2-1.3); CALCIUM 8.7 mg/dL (8.5-10.1); CARBON DIOXIDE 29.7 mmol/L (21.0-32.0); CREATININE - SERUM 1.8 mg/dL (0.6-1.3); POTASSIUM - SERUM 3.5 mmol/L (3.5-5.1); PROTEIN - SERUM 6.6 g/dL (6.4-8.2)
[2017-07-05 08:04] VITALS: BP 132/65
[2017-07-05 15:55] VITALS: BP 126/66
[2017-07-05 20:53] VITALS: BP 110/61
[2017-07-06 00:58] VITALS: BP 108/71
[2017-07-06 04:54] VITALS: BP 98/62
[2017-07-06 05:00] LABS: BASOPHILS 0.4 % (0-2); EOSINOPHILS 21.3 % (0-7); HEMOGLOBIN 10.5 g/dL (12-16); IMMATURE GRANULOCYTES 0.3 % (0-5); LYMPHOCYTES 12.5 % (15-50); MCH 28.2 pg (26.0-34.0); MEAN PLATELET VOLUME 10.8 fL (7.4-10.4); MONOCYTES 9.7 % (2-11); NEUTROPHILS 55.8 % (40-80); PLATELET COUNT 148 10x3/uL (130-400); RBC 3.73 10x6/uL (4.00-5.40); RDW 14.8 % (11.5-14.5); WBC 10.6 10x3/uL (4.8-10.8)
[2017-07-06 05:05] LABS: MCV 93.8 fL (80.0-100.0)
[2017-07-06 05:15] LABS: ANION GAP 10.7 mmol/L (8-16); BILIRUBIN - TOTAL 0.45 mg/dL (0.2-1.3); CALCIUM 8.9 mg/dL (8.5-10.1); CREATININE - SERUM 2.2 mg/dL (0.6-1.3); POTASSIUM - SERUM 3.7 mmol/L (3.5-5.1); PROTEIN - SERUM 6.9 g/dL (6.4-8.2)
[2017-07-06 08:03] VITALS: BP 116/64
[2017-07-06 12:21] VITALS: BP 117/56
[2017-07-06 15:29] VITALS: BP 118/66
[2017-07-06 21:34] VITALS: BP 130/60
[2017-07-07 01:32] VITALS: BP 106/59
[2017-07-07 04:54] LABS: BASOPHILS 0.3 % (0-2); EOSINOPHILS 21.7 % (0-7); HEMATOCRIT 34.6 % (36.0-48.0); HEMOGLOBIN 10.6 g/dL (12-16); IMMATURE GRANULOCYTES 0.3 % (0-5); LYMPHOCYTES 13.6 % (15-50); MCH 28.3 pg (26.0-34.0); MCHC 30.6 g/dL (31.0-37.0); MCV 92.5 fL (80.0-100.0); MEAN PLATELET VOLUME 11.3 fL (7.4-10.4); MONOCYTES 9.4 % (2-11); NEUTROPHILS 54.7 % (40-80); PLATELET COUNT 163 10x3/uL (130-400); RBC 3.74 10x6/uL (4.00-5.40); RDW 14.7 % (11.5-14.5); WBC 10.7 10x3/uL (4.8-10.8)
[2017-07-07 05:14] LABS: ANION GAP 10.4 mmol/L (8-16); BILIRUBIN - TOTAL 0.32 mg/dL (0.2-1.3); CALCIUM 9.3 mg/dL (8.5-10.1); CARBON DIOXIDE 33.4 mmol/L (21.0-32.0); CREATININE - SERUM 2.2 mg/dL (0.6-1.3); POTASSIUM - SERUM 3.8 mmol/L (3.5-5.1); PROTEIN - SERUM 6.9 g/dL (6.4-8.2)
[2017-07-07 07:09] VITALS: BP 115/71
[2017-07-07 08:26] VITALS: BP 134/71
[2017-07-07 10:12] LABS: SPE - A/G RATIO 1.1 (0.7-1.7); SPE - ALBUMIN 3.5 g/dL (2.9-4.4); SPE - ALPHA-1 GLOBULIN 0.3 g/dL (0.0-0.4); SPE - GAMMA GLOBULIN 0.9 g/dL (0.4-1.8); SPE - M-SPIKE Not Observed g/dL (Not Observed); SPE - TOTAL PROTEIN 6.7 g/dL (6.0-8.5)
[2017-07-07 15:45] VITALS: BP 100/58
[2017-07-07 16:13] LABS: UPE RAND - ALBUMIN 64.3 % (()); UPE RAND - ALPHA 1 GLOBULIN 0.5 % (()); UPE RAND - ALPHA 2 GLOBULIN 4.7 % (()); UPE RAND - BETA GLOBULIN 13.2 % (()); UPE RAND - GAMMA GLOBULIN 17.2 % (())
[2017-07-07 17:04] LABS: BASOPHILS 0.4 % (0-2); EOSINOPHILS 18.6 % (0-7); HEMATOCRIT 37.3 % (36.0-48.0); HEMOGLOBIN 11.4 g/dL (12-16); IMMATURE GRANULOCYTES 0.2 % (0-5); LYMPHOCYTES 13.2 % (15-50); MCH 27.9 pg (26.0-34.0); MCHC 30.6 g/dL (31.0-37.0); MCV 91.4 fL (80.0-100.0); MEAN PLATELET VOLUME 10.6 fL (7.4-10.4); MONOCYTES 11.1 % (2-11); NEUTROPHILS 56.5 % (40-80); PLATELET COUNT 135 10x3/uL (130-400); RBC 4.08 10x6/uL (4.00-5.40); RDW 14.6 % (11.5-14.5); WBC 10.4 10x3/uL (4.8-10.8)
[2017-07-07 17:19] LABS: ANION GAP 12.2 mmol/L (8-16); CALCIUM 9.1 mg/dL (8.5-10.1); CARBON DIOXIDE 30.2 mmol/L (21.0-32.0); CREATININE - SERUM 1.7 mg/dL (0.6-1.3); POTASSIUM - SERUM 3.4 mmol/L (3.5-5.1)
[2017-07-07 21:09] VITALS: BP 111/70
[2017-07-08 00:49] VITALS: BP 96/62
[2017-07-08 05:12] VITALS: BP 118/66
[2017-07-08 06:38] LABS: BASOPHILS 0.4 % (0-2); HEMATOCRIT 37.8 % (36.0-48.0); HEMOGLOBIN 11.4 g/dL (12-16); IMMATURE GRANULOCYTES 0.2 % (0-5); LYMPHOCYTES 16.3 % (15-50); MCH 27.8 pg (26.0-34.0); MCHC 30.2 g/dL (31.0-37.0); MCV 92.2 fL (80.0-100.0); MEAN PLATELET VOLUME 11.5 fL (7.4-10.4); MONOCYTES 8.6 % (2-11); NEUTROPHILS 54.5 % (40-80); RDW 14.7 % (11.5-14.5); WBC 9.9 10x3/uL (4.8-10.8)
[2017-07-08 06:43] LABS: PLATELET COUNT 165 10x3/uL (130-400)
[2017-07-08 07:10] LABS: ALBUMIN 3.1 g/dL (3.4-5.0); ANION GAP 13.1 mmol/L (8-16); BILIRUBIN - TOTAL 0.5 mg/dL (0.2-1.3); CARBON DIOXIDE 29.6 mmol/L (21.0-32.0); CREATININE - SERUM 2.6 mg/dL (0.6-1.3); POTASSIUM - SERUM 3.7 mmol/L (3.5-5.1)
[2017-07-08 08:14] VITALS: BP 111/57
[2017-07-08 11:53] VITALS: BP 104/65
[2017-07-08 15:24] VITALS: BP 121/59
[2017-07-08 21:09] VITALS: BP 106/49
[2017-07-09 05:54] VITALS: BP 114/53
[2017-07-09 05:59] LABS: BASOPHILS 0.4 % (0-2); EOSINOPHILS 14.9 % (0-7); HEMATOCRIT 35.2 % (36.0-48.0); HEMOGLOBIN 10.8 g/dL (12-16); IMMATURE GRANULOCYTES 0.3 % (0-5); LYMPHOCYTES 15.2 % (15-50); MCH 28.4 pg (26.0-34.0); MCHC 30.7 g/dL (31.0-37.0); MCV 92.6 fL (80.0-100.0); MEAN PLATELET VOLUME 11.1 fL (7.4-10.4); MONOCYTES 10.6 % (2-11); NEUTROPHILS 58.6 % (40-80); PLATELET COUNT 176 10x3/uL (130-400); WBC 11.9 10x3/uL (4.8-10.8)
[2017-07-09 06:09] LABS: ANION GAP 16.1 mmol/L (8-16); CALCIUM 9.2 mg/dL (8.5-10.1); CARBON DIOXIDE 25.8 mmol/L (21.0-32.0); CREATININE - SERUM 2.8 mg/dL (0.6-1.3); POTASSIUM - SERUM 3.9 mmol/L (3.5-5.1)
[2017-07-09 08:52] VITALS: BP 148/99
[2017-07-09 12:47] VITALS: BP 126/58
[2017-07-09 20:00] VITALS: BP 99/54
[2017-07-10] VITALS: BP 122/67
[2017-07-10 04:00] VITALS: BP 116/60
[2017-07-10 08:39] VITALS: BP 126/75
[2017-07-10] MEDS ORDERED: PLAVIX75 MG PO (08:51)
[2017-07-10] MEDS ORDERED: ULTRAM50 MG PO (08:52)
[2017-07-10] MEDS ORDERED: LASIX40 MG PO (08:52)
[2017-07-10 11:57] VITALS: BP 79/43
[2017-07-10 13:06] VITALS: BP 123/54
[2017-07-15 12:11] LABS: HEPATITIS BE ANTIBODY Negative (Negative)
== END 2017-07-10 15:54 | disposition home health service (06) | DRG 246 ==
LOC: D.M2 15:46
PROVIDERS: Emergency Medicine; Internal Medicine Cardiovascular Disease; Internal Medicine Nephrology; Surgery
PROC: 0JH63XZ Insertion of Tunneled Vascular Access Device into Chest Subcutaneous Tissue and Fascia, Percutaneous Approach (ICD-10-PCS; 2017-07-01)
PROC: 02HV33Z Insertion of Infusion Device into Superior Vena Cava, Percutaneous Approach (ICD-10-PCS; 2017-07-01)
PROC: B5181ZA Fluoroscopy of Superior Vena Cava using Low Osmolar Contrast, Guidance (ICD-10-PCS; 2017-07-01)
PROC: 5A1D70Z Performance of Urinary Filtration, Intermittent, Less than 6 Hours Per Day (ICD-10-PCS; principal; 2017-07-01 12:00)
PROC: 027035Z Dilation of Coronary Artery, One Artery with Two Drug-eluting Intraluminal Devices, Percutaneous Approach (ICD-10-PCS; 2017-07-08)
PROC: 4A023N7 Measurement of Cardiac Sampling and Pressure, Left Heart, Percutaneous Approach (ICD-10-PCS; 2017-07-08)
PROC: B2111ZZ Fluoroscopy of Multiple Coronary Arteries using Low Osmolar Contrast (ICD-10-PCS; 2017-07-08)
PROC: B2151ZZ Fluoroscopy of Left Heart using Low Osmolar Contrast (ICD-10-PCS; 2017-07-08)
DX: I13.0 Hypertensive heart and chronic kidney disease with heart failure and stage 1 through stage 4 chronic kidney disease, or unspecified chronic kidney disease (principal); N17.0 Acute kidney failure with tubular necrosis; I50.23 Acute on chronic systolic (congestive) heart failure; N18.4 Chronic kidney disease, stage 4 (severe); Z68.43 Body mass index [BMI] 50.0-59.9, adult; E11.22 Type 2 diabetes mellitus with diabetic chronic kidney disease; I25.10 Atherosclerotic heart disease of native coronary artery without angina pectoris; E66.01 Morbid (severe) obesity due to excess calories; I95.9 Hypotension, unspecified; E87.5 Hyperkalemia; I08.1 Rheumatic disorders of both mitral and tricuspid valves; E78.5 Hyperlipidemia, unspecified